=== PATIENT | male | born 1940 | race Two or more races ===

== ENCOUNTER 2018-09-16 06:36 | Day surgery (SDC) | payer MEDICARE, MEDICAID ==
[2018-09-16] MEDS ORDERED: IRR STERIL WATER FOR IRR 1000 ML BOTTLE IR ONE (06:37)
[2018-09-16] MEDS ORDERED: ONDANSETRON 4 MG/2 ML VIAL IV ONE (06:37)
[2018-09-16] MEDS ORDERED: IV NORMAL SALINE 1000 ML BAG IV ONE (06:37)
[2018-09-16] MEDS ORDERED: BALANCED SALT IRRIG SOLN COMB1 500 ML, EPINEPHRINE-PF 1:1000 0.5 MG IO ONE ×2 (07:00)
[2018-09-16] MEDS ORDERED: CIPROFLOXACIN 0.3% OPHT DROP 2.5 ML BOTTLE ONE (07:04)
[2018-09-16] MEDS ORDERED: KETOROLAC 0.5% OPHT DROP 3 ML BOTTLE ONE (07:04)
[2018-09-16] MEDS ORDERED: TROPICAMIDE 1% OPHT DROP 3 ML BOTTLE ONE (07:08)
[2018-09-16] MEDS ORDERED: CYCLOPENTOLATE 1% OPHT DROP 2 ML BOTTLE ONE (07:08)
[2018-09-16] MEDS ORDERED: PHENYLEPHRINE 2.5% OPHT DROP 2 ML BOTTLE ONE (07:09)
[2018-09-16] MEDS ORDERED: NEO/POLYMYX B/DEXAME OPHT OINT 3.5 GM TUBE ONE (07:33)
[2018-09-16] MEDS ORDERED: TIMOLOL MALEATE 0.5% OPHT DROP 5 ML BOTTLE ONE (07:33)
[2018-09-16] MEDS ORDERED: TETRACAINE HCL 0.5% OPHT DROP 2 ML BOTTLE ONE (07:33)
[2018-09-16] MEDS ORDERED: LIDOCAINE-MPF 2% 5 ML VIAL ONE (07:33)
[2018-09-16] MEDS ORDERED: BALANCED SALT IRRIG SOLN COMB2 15 ML IRRIG.SOLN ONE (07:33)
[2018-09-16] MEDS ORDERED: MOXIFLOXACIN HCL 3 ML OPHT DROPS ONE (07:33)
[2018-09-16] MEDS ORDERED: HYALURONATE SODIUM 12.8 MG/0.8 ML DISP.SYRIN ONE (07:34)
[2018-09-16] MEDS ORDERED: HYALURONIDASE,OVINE 200 UNITS/ML VIAL ONE (07:34)
[2018-09-16] MEDS ORDERED: ACETYLCHOLINE CHLORIDE 1% OPHT 1 EA KIT ONE (07:34)
[2018-09-16] MEDS ORDERED: HYALURONATE SODIUM 8.5 MG/0.85 ML DISP.SYRIN ONE ×2 (07:34→07:35)
[2018-09-16] MEDS ORDERED: PHENYLEPHRINE 10% OPHT DROP 5 ML BOTTLE ONE (07:42)
[2018-09-16] MEDS ORDERED: FENTANYL CITRATE 100 MCG/2 ML AMPUL ONE (07:56)
[2018-09-16] MEDS ORDERED: BALANCED SALT IRRIG SOLN COMB1 500 ML ONE (08:39)
== END 2018-09-16 10:20 | disposition home or self-care (01) ==
LOC: DS 06:36
PROVIDERS: ATTEND Ophthalmology
DX: E11.36 Type 2 diabetes mellitus with diabetic cataract (principal); I10 Essential (primary) hypertension; E78.5 Hyperlipidemia, unspecified; Z79.899 Other long term (current) drug therapy; Z79.84 Long term (current) use of oral hypoglycemic drugs; K21.9 Gastro-esophageal reflux disease without esophagitis; J44.9 Chronic obstructive pulmonary disease, unspecified; M19.90 Unspecified osteoarthritis, unspecified site
CPT/HCPCS: 36415; 66984; 71045; 82962; 84132; J0171; J2405; J3010; J3471; J3490; J7321 ×2; V2632; A4217; A4663; J7030